=== PATIENT | female | born 1945 | race Caucasian/White ===

== ENCOUNTER 2016-10-22 17:06 | Emergency (ER) | payer MEDICARE ==
[~2016-10-22] VITALS: Ht 160 cm; Wt 76.8 kg
[2016-10-22 17:11] VITALS: BP 175/81; PULSE 65; RESP 16; TEMP 98.1; O2SAT 99
[2016-10-22] MEDS ORDERED: KETOROLAC TROMETHAMINE 60 MG/2 ML (IM) VIAL IM ONE (17:30)
[2016-10-22] MEDS ORDERED: traMADol HCL 50 MG TAB PO ONE (17:30)
--- NOTE | 2016-10-22 17:30 | PD ---
HPI Chief Complaint: Musculoskeletal Complaint Time Seen by Provider: 17:23 Travel History International Travel<30 days: No Contact w/Intl Traveler<30days: No Traveled to known affect area: No History of Present Illness HPI while dancing at wedding, she was twirled and shortly after developed sharp right knee pain, 8/10, worse with weight bearing, since then has been limping and unable to place full body weight PFSH Past Medical History ?: Not Social History Tobacco Use: No Allergies-Medications (Allergen,Severity, Reaction): Coded Allergies: No Known Allergies (Unverified , 10/22/16) Reported Meds & Prescriptions Reported Meds & Active Scripts Active Zofran Odt (Ondansetron Odt) 4 Mg Tab 4 Mg SL Q6HR PRN Codeine-Acetaminophen 30-300 mg Tab 1 Tab PO Q4H PRN Reported Imitrex (Sumatriptan Succinate) 50 Mg Tab 50 Mg PO ONCE PRN If a satisfactory response has not been obtained at 2 hours, a second dose may be administered Synthroid (Levothyroxine Sodium) 100 Mcg Tab 100 Mcg PO DAILY Review of Systems Except as stated in HPI: all other systems reviewed are Neg Musculoskeletal: Positive: Pain Physical Exam Narrative GENERAL: SKIN: Warm and dry. HEAD: Atraumatic. Normocephalic. EYES: Pupils equal and round. No scleral icterus. No injection or drainage. ENT: No nasal bleeding or discharge. Mucous membranes pink and moist. NECK: Trachea midline. No JVD. CARDIOVASCULAR: Regular rate and rhythm. RESPIRATORY: No accessory muscle use. Clear to auscultation. Breath sounds equal bilaterally. GASTROINTESTINAL: Abdomen soft, non-tender, nondistended. Hepatic and splenic margins not palpable. MUSCULOSKELETAL: Extremities without clubbing, cyanosis, or edema. No obvious deformities. neg anterior/posterior drawer sign, no patellar ttp..but mild edema to right knee, ttp along medial aspect of knee NEUROLOGICAL: Awake and alert. No obvious cranial nerve deficits. Motor grossly within normal limits. Five out of 5 muscle strength in the arms and legs. Normal speech. PSYCHIATRIC: Appropriate mood and affect; insight and judgment normal. Data Data Last Documented VS Vital Signs Date Time Temp Pulse Resp B/P Pulse Ox O2 Delivery O2 Flow Rate FiO2 10/22/16 19:31 59 18 163/85 100 Room Air 10/22/16 17:11 98.1 Orders Ketorolac Inj (Toradol Inj) (10/22/16 17:30) Tramadol (Ultram) (10/22/16 17:30) Knee, Complete (4vws) (10/22/16 ) ^ Knee Immobilizer (10/22/16 18:20) MDM Medical Decision Making Medical Screen Exam Complete: Yes Emergency Medical Condition: Yes Medical Record Reviewed: Yes Differential Diagnosis ligamentous injury v fx v dislocation Narrative Course XRAYS SHOWS OA AND SOME JOINT EFFUSION, WILL REFER TO MRI AND RESULTS TO PCP FOR FURTHER TREATMENT REFERRAL IF NEEDED Diagnosis Primary Impression: right knee sprain Referrals: Jimenez Perez MD Patient Instructions: General Instructions, Swollen Knee Joint (GEN) Scripts Ondansetron Odt (Zofran Odt)4 Mg Tab4 Mg SL Q6HR PRN (Nausea/Vomiting) #12 TAB Prov:Trevor Fisher MD 10/22/16 Codeine-Acetaminophen 30-300 mg Tab1 Tab PO Q4H PRN (PAIN) #20 TAB Prov:Trevor Fisher MD 10/22/16 Disposition: 01 DISCHARGE HOME Condition: Stable Trevor Fisher MD Oct 22, 2016 17:30
[2016-10-22] MEDS ORDERED: IMIT50TA PO (17:34)
[2016-10-22] MEDS ORDERED: LEVO.1 PO (17:34)
--- NOTE | 2016-10-22 17:59 | RADRPT ---
EXAM DATE/TIME: 10/22/2016 17:34 [facility] COMPARISON: No previous studies available for comparison. INDICATIONS : Pain and swelling right knee, no known injury MEDICAL HISTORY : None. SURGICAL HISTORY : None. ENCOUNTER: Initial ACUITY: 1 week PAIN SCORE: 10/10 LOCATION: Right knee FINDINGS: Moderate tricompartment right knee osteoarthritis noted. No fractures or subluxations are demonstrate d. A small joint effusion is evident on the lateral. CONCLUSION: Moderate osteoarthritis and a small joint effusion. No fracture or subluxation of the right knee. Timothy Devlin MD on October 22, 2016 at 17:54 Board Certified Radiologist. This report was verified electronically.
[2016-10-22] MEDS ORDERED: CODE30TA2 PO (18:22)
[2016-10-22] MEDS ORDERED: ZOFR4TAB3 SL (18:22)
[2016-10-22 19:31] VITALS: BP 163/85; PULSE 59; RESP 18; O2SAT 100
== END 2016-10-22 19:43 | disposition home or self-care (01) ==
LOC: PHED 17:06
DX: S83.91XA Sprain of unspecified site of right knee, initial encounter (principal); X58.XXXA Exposure to other specified factors, initial encounter; Y93.41 Activity, dancing
CPT/HCPCS: 73564; 96372; 99284; J1885